=== PATIENT | female | born 1990 | race Caucasian/White ===

== ENCOUNTER 2016-03-01 10:10 | Outpatient (CLI) | payer OTHER | END 2016-03-01 23:00 | LOC: LAB SRH 10:10 | DX: N91.2 Amenorrhea, unspecified (principal) | CPT/HCPCS: 90004; 90074; 90078; 90261; 90364; 90599; 90600; 90605; 90606; 90710; 90851; 92863; 93140; 98480; 99777 ==

== ENCOUNTER 2016-03-29 09:56 | Outpatient (CLI) | payer OTHER | END 2016-03-29 23:00 | LOC: LAB SRH 09:56 | DX: Z34.82 Encounter for supervision of other normal pregnancy, second trimester (principal) | CPT/HCPCS: 90074; 90495; 90496; 90498; 91493 ==

== ENCOUNTER 2016-05-01 17:04 | Outpatient (CLI) | payer OTHER ==
--- NOTE | 2016-05-01 18:13 | DIAGNOSTIC IMAGING REPORT ---
PROCEDURE: US OB DETAILED ANATOMIC INDICATION: ANATOMY TECHNIQUE: Nicole scale, color, and spectral Doppler images of the second trimester gravid uterus were obtained. COMPARISON: None. FINDINGS: A single living intrauterine is in transverse presentation. There is regular cardiac activity at a rate of 169 beats per minute. The placenta is posterior and fundal and away from the internal cervical os. The cervix is closed measuring approximately 4.6 cm in length. The amniotic fluid volume is subjectively normal. Biparietal diameter 4.3 cm of 19 weeks and 0-day Head circumference 16.1 cm of 18 weeks and 6-day Abdominal circumference 14.1 cm of 19 weeks and 3-day Femur length 3.1 cm of 19 weeks and 4 days Estimated weight 294 g Composite gestational age 19 weeks and 2 days, MANUELITO 09/23/2016 A contraction was noted in the lower uterine segment. There was visualization of a number of normal structures including the intracranial contents, facial features, nuchal region, spine, to the extent that could be visualized, fluid-filled stomach, kidneys, abdomen, urinary bladder, upper and lower extremities, and genitals. A three-vessel umbilical cord, normal and placental cord insertion sites were seen. Due to position the heart views, diaphragm and digits were not seen. Recommend repeat scan in 2 weeks. IMPRESSION: 1. Single living intrauterine with a composite gestational age of 19 weeks and 2 days, MANUELITO 09/23/2016 2. Due to position the heart views, diaphragm and digits were not seen. Recommend repeat scan in 2 weeks.
== END 2016-05-01 23:00 ==
LOC: US SRH 17:04
DX: O32.9XX1 Maternal care for malpresentation of fetus, unspecified, fetus 1 (principal); Z3A.19 19 weeks gestation of pregnancy

== ENCOUNTER 2016-06-28 11:41 | Outpatient (CLI) | payer OTHER | END 2016-06-28 23:00 | LOC: LAB SRH 11:41 | DX: Z34.82 Encounter for supervision of other normal pregnancy, second trimester (principal) | CPT/HCPCS: 90039; 90074; 91162; 91163 ==